=== PATIENT | male | born 1955 | race Caucasian/White ===

== ENCOUNTER 2018-09-13 17:33 | Inpatient (IN) | payer BC, OTHER ==
[~2018-09-13] VITALS: Ht 175.3 cm; Wt 65.1 kg
[2018-09-13 18:05] LABS: HCT (SEDRATE) 40.2 % (39.2-51.8)
[2018-09-13 18:06] LABS: MEAN CORPUSCULAR HEMOGLOBIN 27.6 pg (27.5-34.5); MEAN CORPUSCULAR HGB CONC 32.5 g/dL (33.2-36.2); MEAN PLATELET VOLUME 7.4 fL (7.4-10.4); PLATELET COUNT 526 x10^3/uL (130-400); RED BLOOD COUNT 4.74 x10^6/uL (4.38-5.82); RED CELL DISTRIBUTION WIDTH 16.8 % (9.4-14.8)
[2018-09-13 18:14] LABS: ANION GAP 12 mmol/L (5-15); CALCIUM 8.2 mg/dL (8.5-10.1); CHLORIDE 100 mmol/L (98-107); CREATININE 1.15 mg/dL (0.7-1.3)
[2018-09-13 18:15] LABS: ALANINE AMINOTRANSFERASE 53 U/L (12-78); ALBUMIN 2.2 g/dL (3.4-5.0)
[2018-09-13 18:21] LABS: ALKALINE PHOSPHATASE 118 U/L (45-117); BILIRUBIN,TOTAL 0.3 mg/dL (0.2-1.0); TOTAL PROTEIN 6.5 g/dL (6.4-8.2)
[2018-09-13 18:32] LABS: MD YES
[2018-09-13 18:34] LABS: ANISOCYTOSIS 1+; BAND#(MANUAL) 0.66 x10^3/uL; BANDS%(MANUAL) 4 % (0-7); EOS#(MANUAL) 0.17 x10^3/uL (0.0-0.4); EOS% (MANUAL) 1 % (1-7); LYMPH#(MANUAL) 0.66 x10^3/uL (1-3.4); LYMPHS% (MANUAL) 4 % (22-44); METAMYELOCYTES# (MANUAL) 0.17 x10^3/uL (0-0); METAMYELOCYTES% (MANUAL) 1 % (0-1); MONOS% (MANUAL) 3 % (2-9); MYELOCYTES# (MANUAL) 0.17 x10^3/uL (0-0); MYELOCYTES% (MANUAL) 1 % (0-0); SEG#(MANUAL) 14.19 x10^3/uL (1.8-6.8); SEGS% (MANUAL) 86 % (42-75)
[2018-09-13 18:35] LABS: <PLATELET ESTIMATE> INCREASED; <PLT MORPHOLOGY> NORMAL PLT MORPH
[2018-09-13] MEDS ORDERED: FLUC150T2 PO (18:52)
[2018-09-13] MEDS ORDERED: PRED20TA PO (18:52)
--- NOTE | 2018-09-13 19:06 | NUR ---
BS REPORT TO MARY JANE
[2018-09-13 19:11] LABS: FREE T4 (FREE THYROXINE) 1.26 ng/dL (0.76-1.46); THYROID STIMULATING HORMONE 1.73 mIU/L (0.358-3.740)
--- NOTE | 2018-09-13 19:24 | NUR ---
REPORT FROM HARINDER MURGUIA. PT RESTING AND WAITING FOR LAB RESULTS. PT HAS NO NEEDS AT THIS TIME. CALL LIGHT IN REACH
[2018-09-13 20:49] VITALS: BP 135/95
[2018-09-13] MEDS ORDERED: ACETAMINOPHEN 325 MG TABLET PO PRN (21:00)
[2018-09-13] MEDS ORDERED: TOCI162D SQ (21:05)
[2018-09-13] MEDS: HEPARIN 5,000 UNITS/ML, 1ML SQ SCH (22:09)
[2018-09-13 23:11] LABS: HEMOGLOBIN A1C 5.7 % (4.2-6.3)
[2018-09-14 01:40] VITALS: BP 120/82
[2018-09-14] MEDS: HYDROcodone/APAP 10/325 MG TABLET PO PRN ×3 (01:56→20:58)
[2018-09-14 05:17] LABS: MEAN CORPUSCULAR HEMOGLOBIN 27.1 pg (27.5-34.5); MEAN CORPUSCULAR HGB CONC 32.1 g/dL (33.2-36.2); MEAN CORPUSCULAR VOLUME 84.3 fL (81-97); MEAN PLATELET VOLUME 7.3 fL (7.4-10.4); PLATELET COUNT 405 x10^3/uL (130-400); RED BLOOD COUNT 4.51 x10^6/uL (4.38-5.82); RED CELL DISTRIBUTION WIDTH 16.8 % (9.4-14.8)
[2018-09-14 05:38] LABS: ALBUMIN 2.1 g/dL (3.4-5.0); ANION GAP 8 mmol/L (5-15); CALCIUM 8.6 mg/dL (8.5-10.1); CHLORIDE 102 mmol/L (98-107)
[2018-09-14 05:50] LABS: ALANINE AMINOTRANSFERASE 46 U/L (12-78); ALKALINE PHOSPHATASE 106 U/L (45-117); BILIRUBIN,TOTAL 0.4 mg/dL (0.2-1.0); CREATININE 0.77 mg/dL (0.7-1.3); TOTAL PROTEIN 5.8 g/dL (6.4-8.2)
[2018-09-14 05:58] LABS: MD YES
[2018-09-14 06:00] LABS: ANISOCYTOSIS 1+; BAND#(MANUAL) 0.12 x10^3/uL; BANDS%(MANUAL) 1 % (0-7); LYMPH#(MANUAL) 0.37 x10^3/uL (1-3.4); LYMPHS% (MANUAL) 3 % (22-44); MONOS% (MANUAL) 4 % (2-9); SEG#(MANUAL) 11.41 x10^3/uL (1.8-6.8); SEGS% (MANUAL) 92 % (42-75)
[2018-09-14 06:01] LABS: <PLATELET ESTIMATE> INCREASED; <PLT MORPHOLOGY> NORMAL PLT MORPH
[2018-09-14] MEDS: HEPARIN 5,000 UNITS/ML, 1ML SQ SCH ×3 (06:15→22:48)
[2018-09-14 06:54] VITALS: BP 132/84
[2018-09-14] MEDS: FLUCONAZOLE 50 MG TABLET PO SCH (08:41)
[2018-09-14 12:24] LABS: GLUCOSE, CSF 60 mg/dL (40-80); TOTAL PROTEIN,CSF 40 mg/dL (15-45)
[2018-09-14] MEDS: DOCUSATE 100 MG CAPSULE PO SCH ×2 (16:08→21:00)
[2018-09-14 18:55] VITALS: BP 133/93
[2018-09-15 01:07] VITALS: BP 118/76
[2018-09-15] MEDS: HEPARIN 5,000 UNITS/ML, 1ML SQ SCH ×3 (05:42→22:06)
[2018-09-15 05:55] LABS: BASOPHILS # (AUTO) 0.01 x10^3/uL (0-0.1); BASOPHILS % (AUTO) 0 % (0-1); EOSINOPHILS # (AUTO) 0.12 x10^3/uL (0-0.4); EOSINOPHILS % (AUTO) 1 % (1-7); LYMPHOCYTES # (AUTO) 0.79 x10^3/uL (1-3.4); LYMPHOCYTES % (AUTO) 7 % (22-44); MD NO; MEAN CORPUSCULAR HEMOGLOBIN 26.8 pg (27.5-34.5); MEAN CORPUSCULAR HGB CONC 31.8 g/dL (33.2-36.2); MEAN CORPUSCULAR VOLUME 84.3 fL (81-97); MEAN PLATELET VOLUME 6.9 fL (7.4-10.4); MONOCYTES # (AUTO) 0.35 x10^3/uL (0.2-0.8); MONOCYTES % (AUTO) 3 % (2-9); NEUTROPHILS # (AUTO) 10.77 x10^3/uL (1.8-6.8); NEUTROPHILS % (AUTO) 89 % (42-75); PLATELET COUNT 390 x10^3/uL (130-400); RED BLOOD COUNT 4.67 x10^6/uL (4.38-5.82); RED CELL DISTRIBUTION WIDTH 16.5 % (9.4-14.8)
[2018-09-15 06:06] LABS: ANION GAP 7 mmol/L (5-15); CALCIUM 8.6 mg/dL (8.5-10.1); CHLORIDE 104 mmol/L (98-107); CREATININE 0.81 mg/dL (0.7-1.3)
[2018-09-15 06:53] VITALS: BP 129/81
[2018-09-15] MEDS: DOCUSATE 100 MG CAPSULE PO SCH ×2 (08:06→20:00)
[2018-09-15] MEDS: FLUCONAZOLE 50 MG TABLET PO SCH (08:07)
[2018-09-15] MEDS: HYDROcodone/APAP 10/325 MG TABLET PO PRN ×3 (08:07→22:04)
[2018-09-15] MEDS ORDERED: GABAPENTIN 100 MG CAPSULE PO SCH (09:00)
[2018-09-15] MEDS ORDERED: MORPHINE SULFATE 4 MG/ML, 1ML IVPush ONE (09:16)
[2018-09-15] MEDS ORDERED: MORPHINE SULFATE 4 MG/ML, 1ML ONE (09:19)
[2018-09-15 11:18] LABS: HCT (SEDRATE) 39.4 % (39.2-51.8)
[2018-09-15] MEDS ORDERED: GADOBUTROL 7.5 MMOL/7.5 ML PFS ONE (12:42)
[2018-09-15 12:58] VITALS: BP 136/95
[2018-09-15] MEDS: HYDROmorphone 2MG TABLET PO PRN ×3 (13:13→23:11)
[2018-09-15 18:24] LABS: MICROSCOPIC AUTO
[2018-09-15 18:34] LABS: CULTURE INDICATED? YES
[2018-09-15 18:43] VITALS: BP 136/87
[2018-09-15] MEDS: GABAPENTIN 300 MG CAPSULE PO SCH (20:01)
[2018-09-16 01:34] VITALS: BP 152/87
[2018-09-16] MEDS ORDERED: morphine SULFATE 10 MG/ML, 1ML IVPush ONE ×2 (02:30→03:00)
[2018-09-16] MEDS: HYDROmorphone 2MG TABLET PO PRN ×3 (02:47→19:13)
[2018-09-16] MEDS: HYDROcodone/APAP 10/325 MG TABLET PO PRN ×4 (03:45→21:21)
[2018-09-16] MEDS ORDERED: HYDROmorphone 1 MG/ML, 1ML INJ IV ONE (04:30)
[2018-09-16] MEDS: HYDROmorphone 2 MG/ML, 1ML IVPush PRN ×2 (04:55→04:57)
[2018-09-16] MEDS: HEPARIN 5,000 UNITS/ML, 1ML SQ SCH ×3 (06:28→21:21)
[2018-09-16 06:43] VITALS: BP 148/87
[2018-09-16] MEDS: GABAPENTIN 300 MG CAPSULE PO SCH ×3 (08:43→21:20)
[2018-09-16] MEDS: FLUCONAZOLE 50 MG TABLET PO SCH (08:43)
[2018-09-16] MEDS: DOCUSATE 100 MG CAPSULE PO SCH ×2 (08:44→21:00)
[2018-09-16] MEDS: POLYETHYLENE GLYCOL 17 GM PACKET PO PRN (08:54)
[2018-09-16] MEDS ORDERED: HYDROmorphone 2MG TABLET PO PRN (09:00)
[2018-09-16 10:01] LABS: MEAN CORPUSCULAR HEMOGLOBIN 27.7 pg (27.5-34.5); MEAN CORPUSCULAR HGB CONC 32.5 g/dL (33.2-36.2); MEAN CORPUSCULAR VOLUME 85.3 fL (81-97); MEAN PLATELET VOLUME 7.3 fL (7.4-10.4); PLATELET COUNT 453 x10^3/uL (130-400); RED BLOOD COUNT 4.58 x10^6/uL (4.38-5.82); RED CELL DISTRIBUTION WIDTH 16.8 % (9.4-14.8)
[2018-09-16 10:06] LABS: ALBUMIN 2.2 g/dL (3.4-5.0); ANION GAP 9 mmol/L (5-15); CALCIUM 7.5 mg/dL (8.5-10.1); CHLORIDE 105 mmol/L (98-107)
[2018-09-16 10:10] LABS: ALANINE AMINOTRANSFERASE 38 U/L (12-78); ALKALINE PHOSPHATASE 101 U/L (45-117); BILIRUBIN,TOTAL 0.3 mg/dL (0.2-1.0); CREATININE 0.71 mg/dL (0.7-1.3); TOTAL PROTEIN 5.3 g/dL (6.4-8.2)
[2018-09-16 10:23] LABS: BASOPHILS # (AUTO) 0.03 x10^3/uL (0-0.1); BASOPHILS % (AUTO) 0 % (0-1); EOSINOPHILS # (AUTO) 0.01 x10^3/uL (0-0.4); EOSINOPHILS % (AUTO) 0 % (1-7); LYMPHOCYTES # (AUTO) 0.87 x10^3/uL (1-3.4); LYMPHOCYTES % (AUTO) 5 % (22-44); MD SCAN; MONOCYTES % (AUTO) 1 % (2-9); NEUTROPHILS # (AUTO) 15.55 x10^3/uL (1.8-6.8); NEUTROPHILS % (AUTO) 94 % (42-75)
[2018-09-16 12:18] VITALS: BP 135/88
[2018-09-16 18:39] VITALS: BP 149/89
[2018-09-17 01:21] VITALS: BP 132/82
[2018-09-17 05:26] LABS: MEAN CORPUSCULAR HEMOGLOBIN 27.6 pg (27.5-34.5); MEAN CORPUSCULAR HGB CONC 32.6 g/dL (33.2-36.2); MEAN CORPUSCULAR VOLUME 84.9 fL (81-97); MEAN PLATELET VOLUME 7.3 fL (7.4-10.4); PLATELET COUNT 438 x10^3/uL (130-400); RED BLOOD COUNT 4.52 x10^6/uL (4.38-5.82); RED CELL DISTRIBUTION WIDTH 16.7 % (9.4-14.8)
[2018-09-17] MEDS: HEPARIN 5,000 UNITS/ML, 1ML SQ SCH ×3 (05:31→22:00)
[2018-09-17 05:44] LABS: ANION GAP 8 mmol/L (5-15); CALCIUM 8.4 mg/dL (8.5-10.1); CHLORIDE 102 mmol/L (98-107); CREATININE 0.76 mg/dL (0.7-1.3)
[2018-09-17 05:51] LABS: MD YES
[2018-09-17 05:53] LABS: BANDS%(MANUAL) 1 % (0-7); LYMPH#(MANUAL) 0.78 x10^3/uL (1-3.4); LYMPHS% (MANUAL) 4 % (22-44); MONOS#(MANUAL) 0.59 x10^3/uL (0.3-2.7); MONOS% (MANUAL) 3 % (2-9); REACTIVE LYMPHS % (MANUAL) 1 % (0-0); SEG#(MANUAL) 17.75 x10^3/uL (1.8-6.8); SEGS% (MANUAL) 91 % (42-75)
[2018-09-17 05:54] LABS: <PLATELET ESTIMATE> INCREASED; <PLT MORPHOLOGY> NORMAL PLT MORPH; ANISOCYTOSIS 1+
[2018-09-17 06:40] VITALS: BP 131/77
[2018-09-17] MEDS: DOCUSATE 100 MG CAPSULE PO SCH ×2 (08:28→20:28)
[2018-09-17] MEDS: FLUCONAZOLE 50 MG TABLET PO SCH (08:28)
[2018-09-17] MEDS: GABAPENTIN 300 MG CAPSULE PO SCH ×3 (08:28→20:28)
[2018-09-17] MEDS ORDERED: HYDROmorphone 2 MG/ML, 1ML IVPush PRN (09:30)
[2018-09-17 12:19] VITALS: BP 155/84
[2018-09-17 18:57] VITALS: BP 149/82
[2018-09-17] MEDS: HYDROmorphone 2MG TABLET PO PRN (19:23)
[2018-09-17] MEDS: HYDROcodone/APAP 10/325 MG TABLET PO PRN (20:27)
[2018-09-18 01:09] VITALS: BP 154/76
[2018-09-18] MEDS: HEPARIN 5,000 UNITS/ML, 1ML SQ SCH ×3 (06:03→22:00)
[2018-09-18 06:52] VITALS: BP 124/73
[2018-09-18] MEDS: DOCUSATE 100 MG CAPSULE PO SCH ×2 (08:32→21:00)
[2018-09-18] MEDS: FLUCONAZOLE 50 MG TABLET PO SCH (08:32)
[2018-09-18] MEDS: GABAPENTIN 300 MG CAPSULE PO SCH ×3 (08:32→22:30)
[2018-09-18 12:10] VITALS: BP 125/73
[2018-09-18] MEDS: HYDROmorphone 2MG TABLET PO PRN ×2 (14:26→18:31)
[2018-09-18 18:58] VITALS: BP 132/81
[2018-09-18] MEDS: POLYETHYLENE GLYCOL 17 GM PACKET PO PRN (21:14)
[2018-09-19 01:07] VITALS: BP 126/74
[2018-09-19] MEDS: HEPARIN 5,000 UNITS/ML, 1ML SQ SCH ×3 (06:21→21:13)
[2018-09-19 07:13] VITALS: BP 116/69
[2018-09-19] MEDS: DOCUSATE 100 MG CAPSULE PO SCH ×2 (09:37→21:13)
[2018-09-19] MEDS: GABAPENTIN 300 MG CAPSULE PO SCH ×3 (09:37→21:13)
[2018-09-19] MEDS: FLUCONAZOLE 50 MG TABLET PO SCH (09:37)
[2018-09-19 15:33] VITALS: BP 122/78
[2018-09-19 19:08] VITALS: BP 119/70
[2018-09-19] MEDS: HYDROmorphone 2MG TABLET PO PRN (21:13)
[2018-09-19] MEDS: HYDROcodone/APAP 10/325 MG TABLET PO PRN (23:01)
[2018-09-20 02:54] VITALS: BP 117/67
[2018-09-20] MEDS: HEPARIN 5,000 UNITS/ML, 1ML SQ SCH ×3 (05:46→19:57)
[2018-09-20] MEDS: PANTOPROZOLE 40MG TABLET PO SCH (05:46)
[2018-09-20 06:17] LABS: ANION GAP 8 mmol/L (5-15); CALCIUM 8.5 mg/dL (8.5-10.1); CHLORIDE 105 mmol/L (98-107); CREATININE 0.75 mg/dL (0.7-1.3)
[2018-09-20 06:18] LABS: MEAN CORPUSCULAR HEMOGLOBIN 27.1 pg (27.5-34.5); MEAN CORPUSCULAR HGB CONC 32.3 g/dL (33.2-36.2); MEAN CORPUSCULAR VOLUME 83.8 fL (81-97); MEAN PLATELET VOLUME 7.3 fL (7.4-10.4); PLATELET COUNT 337 x10^3/uL (130-400); RED BLOOD COUNT 4.53 x10^6/uL (4.38-5.82); RED CELL DISTRIBUTION WIDTH 17.3 % (9.4-14.8)
[2018-09-20 06:34] LABS: BASOPHILS # (AUTO) 0.04 x10^3/uL (0-0.1); BASOPHILS % (AUTO) 0 % (0-1); EOSINOPHILS % (AUTO) 0 % (1-7); LYMPHOCYTES % (AUTO) 5 % (22-44); MD SCAN; MONOCYTES # (AUTO) 0.43 x10^3/uL (0.2-0.8); MONOCYTES % (AUTO) 3 % (2-9); NEUTROPHILS # (AUTO) 15.93 x10^3/uL (1.8-6.8); NEUTROPHILS % (AUTO) 92 % (42-75)
[2018-09-20 07:00] VITALS: BP 120/89
[2018-09-20] MEDS: FLUCONAZOLE 50 MG TABLET PO SCH (08:30)
[2018-09-20] MEDS: GABAPENTIN 300 MG CAPSULE PO SCH ×3 (08:30→19:57)
[2018-09-20] MEDS: DOCUSATE 100 MG CAPSULE PO SCH ×2 (08:30→19:57)
[2018-09-20] MEDS ORDERED: TETRAHYDROZOLINE OPHTH 0.05% 15ML EACHEYE PRN (12:00)
[2018-09-20 12:30] VITALS: BP 119/82
[2018-09-20] MEDS: HYDROcodone/APAP 10/325 MG TABLET PO PRN (14:22)
[2018-09-20] MEDS: POLYETHYLENE GLYCOL 17 GM PACKET PO PRN (14:22)
[2018-09-20 18:54] VITALS: BP 128/80
[2018-09-20] MEDS: HYDROmorphone 2MG TABLET PO PRN (19:57)
[2018-09-21 01:09] VITALS: BP 113/72
[2018-09-21] MEDS: HEPARIN 5,000 UNITS/ML, 1ML SQ SCH (05:15)
[2018-09-21] MEDS: PANTOPROZOLE 40MG TABLET PO SCH (05:15)
[2018-09-21 06:46] VITALS: BP 105/74
[2018-09-21] MEDS ORDERED: ENOXAPARIN 40 MG/0.4 ML SQ SCH (07:30)
[2018-09-21] MEDS: FLUCONAZOLE 50 MG TABLET PO SCH (08:14)
[2018-09-21] MEDS: DOCUSATE 100 MG CAPSULE PO SCH ×2 (08:14→20:47)
[2018-09-21] MEDS: GABAPENTIN 300 MG CAPSULE PO SCH ×3 (08:14→20:47)
[2018-09-21 12:05] VITALS: BP 113/77
[2018-09-21] MEDS ORDERED: PRED20TA PO (15:58)
[2018-09-21] MEDS ORDERED: PANT40TA5 PO (15:58)
[2018-09-21] MEDS ORDERED: GABA300C10 PO (15:58)
[2018-09-21] MEDS: HYDROmorphone 2MG TABLET PO PRN ×2 (16:54→22:17)
[2018-09-21 18:32] VITALS: BP 131/87
== END 2018-09-21 22:50 | disposition short-term general hospital (02) | DRG 74 ==
LOC: ED 19:54 → EDIP 20:03 → 3NE 20:43
PROVIDERS: ADMIT Internal Medicine; ATTEND Internal Medicine
PROC: 009U3ZX Drainage of Spinal Canal, Percutaneous Approach, Diagnostic (ICD-10-PCS; principal; 2018-09-14)
PROC: B01B1ZZ Fluoroscopy of Spinal Cord using Low Osmolar Contrast (ICD-10-PCS; 2018-09-14)
DX: G58.9 Mononeuropathy, unspecified (principal); E44.0 Moderate protein-calorie malnutrition; E87.1 Hypo-osmolality and hyponatremia; B37.81 Candidal esophagitis; D72.829 Elevated white blood cell count, unspecified; Z68.21 Body mass index [BMI] 21.0-21.9, adult; G58.7 Mononeuritis multiplex; H81.10 Benign paroxysmal vertigo, unspecified ear; M21.331 Wrist drop, right wrist; Z66 Do not resuscitate; Z79.52 Long term (current) use of systemic steroids; Z80.0 Family history of malignant neoplasm of digestive organs; Z80.6 Family history of leukemia; Z83.3 Family history of diabetes mellitus; Z96.641 Presence of right artificial hip joint; H55.00 Unspecified nystagmus; M06.9 Rheumatoid arthritis, unspecified; M48.02 Spinal stenosis, cervical region; M48.061 Spinal stenosis, lumbar region without neurogenic claudication; M48.07 Spinal stenosis, lumbosacral region; M50.30 Other cervical disc degeneration, unspecified cervical region; Z88.8 Allergy status to other drugs, medicaments and biological substances
CPT/HCPCS: 36415; 70551; 71045; 72146; 72148; 72156; 77003; 80048; 80053; 80074; 81001; 82550; 82607; 82945; 83036; 83690; 83735; 84100; 84157; 84166; 84439; 84443; 85025; 85651; 86140; 86146; 86255; 87070; 87086; 87205; 87252; 87529; 87798; 87806; 89051; 93306; 99285; A9585; G0378; J1170; J1644; J1650; J2930; G0475; J2270; J7512